=== PATIENT | male | born 1960 | race Caucasian/White ===

== ENCOUNTER 2018-11-11 06:04 | Emergency (ER) | payer SELFPAY ==
[~2018-11-11] VITALS: Ht 175.3 cm; Wt 97.5 kg
[~2018-11-11 06:04] MED LIST: ACHD5005 PO; ALPR.5T PO; ATEN25TA PO; LEVO125T PO; SIMV20TA3 PO; TERA5CAP10 PO
--- NOTE | 2018-11-11 06:08 | ED Lower Extremity ---
General Stated Complaint: ANKLE INJURY Source: patient, EMS Exam Limitations: no limitations History of Present Illness Date Seen by Provider: Nov 11, 2018 Time Seen by Provider: 06:08 Onset: this morning 58 y/o M tripped on a rock and fell on his way into his home. Denies hitting his head or LOC. Difficulty with weight bearing on L leg with L distal tib/fib pain. He drank a 12 pack total overnight and self describes as an alcoholic, but states he goes days without alcohol without problems. Allergies and Home Medications Allergies Coded Allergies: No Known Drug Allergies (Unverified , 11/11/18) Home Medications Alprazolam 0.5 Mg Tablet, 0.5 MG PO TID PRN PRN for ANXIETY, (Reported) PRN ANXIETY Atenolol 25 Mg Tablet, 25 MG PO BID, (Reported) Hydrocodone Bit/Acetaminophen 1 Each Tablet, 1-2 EACH PO Q4H PRN for PAIN NEEDED FOR PAIN Prescribed by: ROSALINDA ARIAS on 06/26/13 0117 Levothyroxine Sodium 125 Mcg Tablet, 125 MCG PO DAILY Prescribed by: ROSALINDA ARIAS on 06/26/13 0102 Oxycodone HCl/Acetaminophen 1 Each Tablet, 1 TAB PO Q6H PRN for PAIN-MODERATE TO SEVERE Prescribed by: ARIANA CONDE on 11/11/18 0701 Simvastatin 20 Mg Tablet, 20 MG PO HS, (Reported) Terazosin Hcl 5 Mg Capsule, 5 MG PO HS, (Reported) Patient Home Medication List Home Medication List Reviewed: Yes Review of Systems Constitutional: No chills, No fever Respiratory: No cough, No short of breath Cardiovascular: No chest pain, No palpitations Gastrointestinal: No abdominal pain, No nausea, No vomiting Musculoskeletal: see HPI Psychiatric/Neurological: Denies Numbness, Denies Paresthesia, Denies Tingling , Denies Weakness Past Sjdjvoi-Uyopkl-Vygblw Hx Past Med/Social Hx: Reviewed Nursing Past Med/Soc Hx Patient Social History Recent Foreign Travel: No Contact w/Someone Who Travel: No Immunizations Up To Date Tetanus Booster (TDap): More than 5yrs Date of Influenza Vaccine: Apr 27, 2013 Past Medical History Reproductive Disorders: No Sexually Transmitted Disease: No HIV/AIDS: No Loss of Vision: Denies Hearing Impairment: Denies Anxiety Family Medical History Cancer 03 MOTHER (THYROID) Family history: Hypertension GRANDPARENTS Family history: Thyroid disorder 03 MOTHER Myocardial infarction GRANDPARENTS Stroke GRANDPARENTS No Family History of: Family history: Asthma Family history: Diabetes mellitus Physical Exam Vital Signs Vital Signs - First Documented 11/11/18 11/11/18 06:15 07:36 Temp 98.9 Pulse 109 Resp 20 B/P (MAP) 122/63 (82) Pulse Ox 95 O2 Delivery Room Air O2 Flow Rate 2.00 Capillary Refill : Height, Weight, BMI Height: '" Weight: 211lbs. oz. 95.755924vn; BMI Method: General Appearance: WD/WN, no apparent distress HEENT: PERRL/EOMI, normal ENT inspection Neck: non-tender, full range of motion, normal inspection Cardiovascular: regular rate, rhythm, no edema, no gallop, no JVD, no murmur Respiratory: chest non-tender, lungs clear, normal breath sounds, no respiratory distress, no accessory muscle use Gastrointestinal: normal bowel sounds, non tender, soft, no organomegaly, no pulsatile mass Back: normal inspection, no CVA tenderness, no vertebral tenderness Hips: bilateral hip non-tender, bilateral hip normal inspection, bilateral hip normal range of motion, bilateral hip no evidence of injury Legs: left leg bone tenderness (distal 1/3 tibia), left leg deformity, left leg ecchymosis Knees: right knee non-tender, right knee normal inspection, right knee normal range of motion, right knee no evidence of injury; left knee bone tenderness Ankles: right ankle non-tender, right ankle normal inspection, right ankle normal range of motion, right ankle no evidence of injury; left ankle bone tenderness, left ankle deformity, left ankle ecchymosis, left ankle limited range of motion Feet: bilateral foot non-tender, bilateral foot normal inspection, bilateral foot normal range of motion, bilateral foot no evidence of injury Neurologic/Tendon: normal sensation, normal motor functions, responds to pain, no evidence tendon injury Procedures/Interventions Splinting and Joint Reduction : Pre-Proc Neuro Vasc Exam: normal Post-Proc Neuro Vasc Exam: normal Paco wrap: Yes Splint Application: Short Arm Progress/Results/Core Measures Results/Orders My Orders Orders - ARIANA CONDE MD Ankle 3 View Left (11/11/18 06:14) Knee 3 View Left (11/11/18 06:14) Fentanyl Injection (Sublimaze Injection (11/11/18 06:15) Tibia Fibula 2 View Left (11/11/18 06:15) Fentanyl Injection (Sublimaze Injection (11/11/18 06:14) Fentanyl Injection (Sublimaze Injection (11/11/18 07:15) Tibia Fibula 2 View Left (11/11/18 07:19) Crutches (11/11/18 07:19) Medications Given in ED Current Medications Medications Dose Ordered Sig/Norman Route Start Time Stop Time Status Last Admin Dose Admin Fentanyl Citrate 50 mcg ONCE ONCE IVP 11/11/18 06:15 11/11/18 06:16 DC 11/11/18 06:19 50 MCG Fentanyl Citrate 50 mcg ONCE ONCE IVP 11/11/18 07:15 11/11/18 07:16 DC 11/11/18 07:06 50 MCG Vital Signs/I&O 11/11/18 11/11/18 06:15 07:36 Temp 98.9 Pulse 109 Resp 20 B/P (MAP) 122/63 (82) Pulse Ox 95 88 O2 Delivery Room Air Nasal Cannula O2 Flow Rate 2.00 Departure Impression Primary Impression: Fracture of tibia and fibula Disposition: 01 HOME, SELF-CARE Condition: Improved Departure-Patient Inst. Decision time for Depature: 07:58 Referrals: DANG BRADLEY MD (PCP) Primary Care Physician YOSEF PULIDO MD Call [phone] to arrange follow up Patient Instructions: How to Use Crutches, SPLINT CARE, Shinbone Fracture (DC) Add. Discharge Instructions: Do not put weight on the left leg. Do not get the splint wet Scripts Oxycodone HCl/Acetaminophen (Percocet 5-325 mg Tablet) 1 Each Tablet 1 TAB PO Q6H PRN for PAIN-MODERATE TO SEVERE MDD 6 TABS for 7 Days, #21 TAB 0 Refills Prov: ARIANA CONDE MD 11/11/18 ARIANA CONDE MD Nov 11, 2018 06:08
--- OUTSIDE RECORDS SUMMARY | 2018-11-11 06:10 | XMS REPORT | Continuity of Care Document ---
Author Organization Unknown Address Unknown Allergies Active Description Code Type Severity Reaction Onset Reported/Identified Relationship to Patient Clinical Status Yes No Known Drug Allergies [id number] Drug Allergy Unknown N/A 06/22/2013 Medications There is no data. Problems Date Dx Coded Attending Type Code Diagnosis Diagnosed By 06/26/2013 LINNETTE MOREIRA MD Ot 193 MALIGN NEOPL THYROID 10/04/2013 KUMAR DAUGHERTY MD Ot 193 MALIGN NEOPL THYROID 10/04/2013 KUMAR DAUGHERTY MD Ot V58.69 OTH MED,LT,CURRENT USE 06/14/2014 KUMAR DAUGHERTY MD Ot 193 08/05/2014 Ot 193 11/11/2018 LINNETTE MOREIRA MD Ot 193 MALIGN NEOPL THYROID 11/11/2018 LINNETTE MOREIRA MD Ot V72.63 PRE-PROCEDURAL LABORATORY EXAMINATION 11/11/2018 LINNETTE MOREIRA MD Ot V74.8 SCREEN-BACTERIAL DIS NEC 11/11/2018 KUMAR DAUGHERTY MD Ot 193 MALIGN NEOPL THYROID 11/11/2018 KMUAR DAUGHERTY MD Ot 193 MALIGN NEOPL THYROID 11/11/2018 Ot 193 MALIGN NEOPL THYROID 11/11/2018 KUMAR DAUGHERTY MD Ot 193 MALIGN NEOPL THYROID Procedures There is no data. Results There is no data. Encounters ACCT No. Visit Date/Time Discharge Status Pt. Type Provider Facility Loc./Unit Complaint [id number] 2014 09:15:00 2014 23:59:59 CLS Outpatient KUMAR DAUGHERTY MD [facility] ONC [id number] 08/11/2013 10:06:00 10/04/2013 00:01:00 DIS Outpatient KUMAR DAUGHERTY MD [facility] ONC [id number] 08/20/2013 12:57:00 08/20/2013 23:59:59 CLS Outpatient KUMAR DAUGHERTY MD [facility] RAD PALPILLARY THYROID CANCER [id number] 08/11/2013 10:48:00 08/11/2013 23:59:59 CLS Outpatient WILLOW GARZON, KUMAR Gage [facility] RAD PALPILLARY THYROID CANCER [id number] 06/25/2013 09:04:00 06/26/2013 09:25:00 DIS Outpatient LINNETTE MOREIRA MD [facility] SDC THYROID NODULES [id number] 06/22/2013 11:15:00 06/22/2013 23:59:59 CLS Outpatient LINNETTE MOREIRA MD [facility] PREOP THYROID NODULES [id number] 11/11/2018 06:06:00 ACT Emergency AMAYA GARZON, ARIANA [facility] ER FS ANKLE INJURY [id number] 08/08/2014 15:57:00 Document Registration [id number] 07/06/2013 09:50:53 ACT Document Registration
--- OUTSIDE RECORDS SUMMARY | 2018-11-11 06:10 | XMS REPORT | Clinical Summary ---
Author Author [facility] Organization [facility] Address Unknown Phone Unavailable Care Team Providers Care Nurse Aide Name Role Phone Jas Tadeo MD Unavailable Source Comments Some departments are not documenting in the electronic medical record. If you do not see the information that you expected, contact Release of Information in the Health Information Management department at [phone] for further assistance in locating additional records.[facility] Allergies No Known Allergies Medications End Date Status Medication Sig Dispensed Refills Start Date Active ALPRAZolam (XANAX) 0.5 mg Take 0.5 mg 0 tablet by mouth at bedtime as needed. Active simvastatin (ZOCOR) 20 mg Take 20 mg by 0 tablet mouth at bedtime daily. Active terazosin (HYTRIN) 5 mg Take 5 mg by 0 capsule mouth at bedtime daily. Active atenolol (TENORMIN) 25 mg Take 25 mg by 0 tablet mouth daily. Active cephalexin (KEFLEX) 500 Take 500 mg 0 mg capsule by mouth three times daily. Active diazepam (VALIUM) 10 mg Take 10 mg by 0 tablet mouth every 6 hours as needed. Active HYDROcodone/acetaminophen Take 1-2 Tabs 30 Tab 0 (NORCO; VICODIN) 5-325 mg by mouth 2 tablet every 4 hours as needed for Pain. NTE 4g acetaminophen /day Active Problems Not on file Social History Date Tobacco Use Types Packs/Day Years Used Never Smoker Smokeless Tobacco: Chew Current User Alcohol Use Drinks/Week oz/Week Comments No quit 4 months ago Sex Assigned at Date Recorded Not on file Industry Job Start Date Occupation Not on file Not on file Not on file Travel End Travel History Travel Start No recent travel history available. Last Filed Vital Signs Time Taken Vital Sign Reading 05/15/2012 1:31 PM CDT Blood Pressure 134/84 05/15/2012 1:31 PM CDT Pulse 82 - Temperature - 05/15/2012 1:31 PM CDT Respiratory Rate 16 - Oxygen Saturation - - Inhaled Oxygen - Concentration 04/06/2012 12:57 PM CDT Weight 88.8 kg (195 lb 12.8 oz) 04/06/2012 12:57 PM CDT Height 175.3 cm (5' 9") 04/06/2012 12:57 PM CDT Body Mass Index 28.91 Plan of Treatment Health Maintenance Due Date Last Done Comments HEPATITIS C SCREENING 1962 PHYSICAL (COMPREHENSIVE) 1969 EXAM HIV SCREENING 1977 DTAP/TDAP VACCINES (1 - 1980 Tdap) COLORECTAL CANCER 2012 SCREENING SHINGLES RECOMBINANT 2012 VACCINE (1 of 2) INFLUENZA VACCINE 02/25/2019 Results Not on filefrom Last 3 Months
[2018-11-11] MEDS ORDERED: fentaNYL INJECTION 100 MCG/2 ML AMP ONE (06:14)
[2018-11-11] MEDS ORDERED: fentaNYL INJECTION 100 MCG/2 ML AMP IVP ONE ×2 (06:15→07:15)
--- NOTE | 2018-11-11 06:55 | NUR ---
ASSUMED CARE OF PT.
[2018-11-11] MEDS ORDERED: OXYC1TAB87 PO (07:01)
--- NOTE | 2018-11-11 07:02 | NUR ---
TALKED WITH ABOUT PREMEDICATION BEFORE SPLINTING.
--- NOTE | 2018-11-11 08:00 | NUR ---
PT TAKEN OFF OF OXYGEN FOR TRIAL. PT SATS DECREASED TO 88%. WILL KEEP PATIENT UNTIL HE CAN MAINTAIN HIS OWN OXYGEN IN THE 90'S. DR NOTIFIED ET PT PLACED BACK ON 2L.
--- NOTE | 2018-11-11 08:09 | Diagnostic Imaging Report ---
INDICATION: Left leg fracture AP and lateral views of the left tibia and fibula performed at 7:24 a.m. and compared to 6:10 the same day. Overlying cast is now in place. There is no change in alignment of the oblique fracture of the distal tibia with about 7 mm of displacement. There is no change in alignment of proximal oblique fibular fracture. IMPRESSION: Unchanged alignment of distal tibial and proximal fibular shaft fractures with overlying cast in place. Dictated by: Dictated on workstation # [id number]
[2018-11-11 08:26] VITALS: BP 128/68
--- NOTE | 2018-11-11 08:26 | NUR ---
PT HAS BEEN AWAKE ET TALKING TO FAMILY FOR 15 MINUTES. PULSE OX HAS BEEN IN THE LOW 90'S. PT STATES HE IS READY FOR DISCHARGE. CMS CHECK LEFT LOWER EXT WNL.
--- NOTE | 2018-11-11 08:27 | Diagnostic Imaging Report ---
INDICATION: Injury to left leg AP, and lateral views of the left tibia and fibula performed at 6:10 a.m. There is a comminuted fracture of the distal tibial shaft with about 9 mm of displacement. There is a comminuted fracture of the proximal fibular shaft with about 9 mm of displacement of the dominant fragment. IMPRESSION: Comminuted distal tibial and proximal fibular shaft fractures with some displacement as described above. Dictated by: Dictated on workstation # [id number]
--- NOTE | 2018-11-11 08:28 | Diagnostic Imaging Report ---
Indication: Left knee pain AP lateral and oblique views of the left knee are obtained at 6:15 hours a.m. There is a comminuted fracture of the proximal fibular shaft with about 9 mm of displacement of the dominant fragment. The proximal tibia and distal femur and patella appear intact. There is mild degenerative change of the patellofemoral joint. IMPRESSION: Comminuted proximal fibular shaft fracture as described above. Dictated by: Dictated on workstation # [id number]
--- NOTE | 2018-11-11 08:35 | Diagnostic Imaging Report ---
PATIENT HISTORY: Fall, left ankle pain. TECHNIQUE: 3 views of the left ankle COMPARISON: None FINDINGS: There is an oblique fracture of the distal left tibial diaphysis, which is mildly comminuted and demonstrates mild lateral displacement, with approximately 8 mm of overriding. There is deformity of the distal left fibula which appears to be from a remote fracture. A proximal fibular fracture is seen on additional concurrent imaging. The ankle mortise appears to be symmetric on these nonstress images. There is moderate soft tissue edema about the left ankle and lower leg. There is a plantar calcaneal enthesophyte. IMPRESSION: 1. Displaced, mildly overriding, mildly comminuted oblique fracture of the distal left tibial diaphysis. 2. Deformity of the distal fibula from remote trauma. More proximal fibular fracture is seen on additional imaging. Dictated by: Dictated on workstation # [id number]
== END 2018-11-11 08:26 | disposition home or self-care (01) ==
LOC: EDUNIT# 06:04 → ER FS 06:06
DX: S82.302A Unspecified fracture of lower end of left tibia, initial encounter for closed fracture (principal); S82.402A Unspecified fracture of shaft of left fibula, initial encounter for closed fracture; F41.9 Anxiety disorder, unspecified; Z82.49 Family history of ischemic heart disease and other diseases of the circulatory system; Z80.8 Family history of malignant neoplasm of other organs or systems; W01.0XXA Fall on same level from slipping, tripping and stumbling without subsequent striking against object, initial encounter
CPT/HCPCS: 29505; 73562; 73590; 73610

== ENCOUNTER → 2020-06-06 | Outpatient (CLI) | payer OTHER ==
[~2020-06-06] MED LIST changes: +OXYC1TAB87 PO
--- NOTE | 2020-06-06 10:07 | Diagnostic Imaging Report ---
HISTORY: Thyroid cancer. History of complete thyroidectomy. COMPARISON: None TECHNIQUE: Ultrasound of the neck soft tissues FINDINGS: On the right side there is a 1.8 x 1.1 x 1.0 cm region which is mildly hyperechoic and heterogeneous in the region of the thyroid bed. This could represent residual thyroid tissue. No large masses or nodules are seen otherwise. No lymphadenopathy is seen. No fluid collections are seen. IMPRESSION: 1. Questionable residual thyroid tissue in the right neck. Dictated by: Dictated on workstation # [id number]
== END ==
LOC: RAD 14:45
PROVIDERS: ATTEND Internal Medicine Endocrinology, Diabetes & Metabolism
DX: Z85.850 Personal history of malignant neoplasm of thyroid (principal)
CPT/HCPCS: 76536

== ENCOUNTER 2021-10-15 05:37 | Outpatient (CLI) | payer MEDICAID ==
[~2021-10-15] VITALS: Ht 175.3 cm; Wt 105.5 kg
[2021-10-15] MEDS ORDERED: AMIT50TA3 PO (11:48)
[2021-10-15] MEDS ORDERED: LEVO125C4 PO (11:48)
[2021-10-15] MEDS ORDERED: ATEN50TA PO (11:48)
[2021-10-15] MEDS ORDERED: ALPR0.5T7 PO (11:48)
[2021-10-15] MEDS ORDERED: ROSU10TA28 PO (11:48)
[2021-10-15] MEDS ORDERED: LISI1TAB48 PO (11:48)
== END 2021-10-15 12:08 | disposition home or self-care (01) ==
LOC: PREOP 05:37
PROVIDERS: ATTEND Surgery
DX: Z01.818 Encounter for other preprocedural examination (principal)

== ENCOUNTER 2021-10-22 09:03 | Day surgery (SDC) | payer MEDICAID, OTHER ==
[~2021-10-22] VITALS: Ht 175 cm; Wt 105.5 kg
[~2021-10-22 09:03] MED LIST changes: +ALPR0.5T7 PO; +AMIT50TA3 PO; +ATEN50TA PO; +LEVO125C4 PO; +LISI1TAB48 PO; +ROSU10TA28 PO
[2021-10-22] MEDS ORDERED: LACTATED RINGERS 1,000 ML IV ONE (09:08)
[2021-10-22] MEDS ORDERED: LACTATED RINGERS 1,000 ML IV STA (09:11)
[2021-10-22] MEDS ORDERED: HURRICAINE EXT TUBE (BENZOCAINE) XX PRN (09:15)
--- NOTE | 2021-10-22 09:26 | Progress Note-Pre Operative ---
Pre-Operative Progress Note H&P Reviewed The H&P was reviewed, patient examined and no changes noted. Time Seen by Provider: 09:22 Date H&P Reviewed: Oct 22, 2021 Time H&P Reviewed: 09:22 Pre-Operative Diagnosis: GERD, Hx of hematemesis, Screening Colonoscopy IVETH HERNÁNDEZ DO Oct 22, 2021 09:26
[2021-10-22 09:35] VITALS: BP 115/90
[2021-10-22] MEDS ORDERED: MIDAZOLAM 2 MG/2 ML (VERSED) VIAL ONE (09:55)
[2021-10-22] MEDS ORDERED: PROPOFOL INJECTION 50 ML IV ONE ×2 (09:56→10:19)
[2021-10-22 10:30] VITALS: BP 110/56
--- NOTE | 2021-10-22 10:30 | Progress Note-Post Operative ---
Post-Operative Progess Note Surgeon (s)/Order To Delivery Supervisor (s) Surgeon IVETH HERNÁNDEZ DO Order To Delivery Supervisor: Marleni Hutchins, MSIII Pre-Operative Diagnosis GERD, Hx of hematemesis, Screening Colonoscopy Post-Operative Diagnosis Gastritis Hiatal hernia Esophagitis Diverticula int hemorrhoids Procedure & Operative Findings Date of Procedure 10/22/21 Procedure Performed/Findings EGD with bx Colonoscopy PROCEDURE NOTE: After informed consent was obtained, the patient was brought to the endoscopy suite, placed in bed in left lateral decubitus position. He was administered IV sedation by the SLOOP CAPTAIN who then monitored vitals the entire time, heart rate, blood pressure and pulse ox and the scope was inserted down the mouth through the esophagus into the stomach. On the way down, noted some mild esophagitis, took a picture, pushed into the stomach, pushed past the antrum into the duodenum. Duodenum looked good. Pulled back and did a biopsy of antrum, then retroflexed the scope, saw a small hiatal hernia, took a picture of this and then pulled the scope into the GE junction, took another picture of the esophagitis and then did a biopsy of the GE junction. Pushed the scope back into the stomach, suctioned all the air out of the stomach. At this point pulled the scope up the esophagus and out the mouth. Switched camera, switched gloves, went down below and started the colonoscopy. Pushed all the way into about 140 cm to get all the way to cecum, took a picture of the appendiceal orifice, noted the i leocecal valve and then slowly withdrew the scope, insufflating to look circumferentially at the bennett looking the cecum, up the ascending colon to the hepatic flexure, then down the transverse colon, splenic flexure, into the descending colon, down into the sigmoid and finally into the rectum, retroflexed in the rectal vault, saw some minimal internal hemorrhoids and took a picture of this. The patient tolerated the procedure and he recovered in the endoscopy suite. Anesthesia Type IV sedation by SLOOP CAPTAIN Estimated Blood Loss Estimated blood loss (mL): scant Specimens/Packing Specimens Removed antral bx GE jxn IVETH Bowling DO Oct 22, 2021 10:30
--- NOTE | 2021-10-22 10:31 | Endoscopy Discharge Instruct ---
Endo Procedure/Findings Findings 1.: Hiatal Hernia 2.: Gastritis, Other Findings (Esophagitis) 3.: Diverticulosis 4.: Internal Hemorrhoids Discharge Instructions - Activity: You might feel a little sleepy until tomorrow. This is due to the medicine you received to relax you. Until tomorrow, you should: NOT drive a car, operate machinery or power tools. NOT drink any alcoholic beverages. NOT make any important decisions or sign importortant papers. Do not return to work until tomorrow, unless otherwise instructed. Resume previous activities tomorrow. Diet: Start by taking liquids. If you tolerate liquids, advance to solid food. 1.: EGD in 3 years 2.: Colonscopy in 10 years Notify Physician - If you experience excessive bleeding, unusual abdominal pain, fever, or chest pain, contact your doctor immediately. IVETH HERNÁNDEZ DO Oct 22, 2021 10:31
[2021-10-22 10:35] VITALS: BP 98/56
[2021-10-22 10:40] VITALS: BP 104/56
[2021-10-22 10:45] VITALS: BP 107/60
[2021-10-22 10:49] VITALS: BP 108/65
--- NOTE | 2021-10-22 14:25 | Anesthesia-General Post-Op ---
MAC Patient Condition Mental Status/LOC: Same as Preop Cardiovascular: Satisfactory Nausea/Vomiting: Absent Respiratory: Satisfactory Pain: Controlled Complications: Absent Post Op Complications Complications None Follow Up Care/Instructions Patient Instructions None needed. Anesthesiology Discharge Order Discharge Order Patient is doing well, no complaints, stable vital signs, no apparent adverse anesthesia problems. No complications reported per nursing. NIECY ROSARIO CRNA Oct 22, 2021 14:25
== END 2021-10-22 11:34 | disposition home or self-care (01) ==
LOC: ENDO 09:03
PROVIDERS: ATTEND Surgery
DX: Z12.11 Encounter for screening for malignant neoplasm of colon (principal); K44.9 Diaphragmatic hernia without obstruction or gangrene; K57.30 Diverticulosis of large intestine without perforation or abscess without bleeding; K64.8 Other hemorrhoids; K29.50 Unspecified chronic gastritis without bleeding; K22.9 Disease of esophagus, unspecified; K21.00 Gastro-esophageal reflux disease with esophagitis, without bleeding
CPT/HCPCS: 88305; 88342